=== PATIENT | male | born 1955 | race Hispanic/Latino ===

== ENCOUNTER 2017-02-08 12:17 | Emergency (ER) | payer OTHER ==
[~2017-02-08] VITALS: Ht 175.3 cm; Wt 68.0 kg
--- NOTE | 2017-02-08 12:27 | ED NECK/BACK PAIN COMPLAINT ---
History of Present Illness General Chief Complaint: Low Back Pain/Injury Stated Complaint: LOW BACK PAIN Source: patient, family Exam Limitations: no limitations Vital Signs & Intake/Output Vital Signs & Intake/Output Vital Signs Date Time Temp Pulse Resp B/P Pulse O2 O2 Flow FiO2 Ox Delivery Rate 02/08 1438 97.8 80 20 138/85 96 Room Air 02/08 1223 97.9 86 18 134/78 96 Room Air Allergies Coded Allergies: Penicillins (PASSES OUT 02/08/17) Reconcile Medications Aspirin (Aspirin*) 81 MG TAB.CHEW 1 TAB PO DAILY HEART HEALTH (Reported) Cyclobenzaprine HCl 10 MG TABLET 1 TAB PO TID PRN muscle relaxant Methylprednisolone. (Medrol) 4 MG TAB.DS.PK 1 DP PO AD INFLAMMATION Oxycodone HCl/Acetaminophen (Percocet 5-325 MG Tablet) 5 MG-325 MG TABLET 1 TAB PO Q6H PRN PAIN Triage Note: PT STATES HIS BACK IS HURTING FOR THE PAST 3 DAYS. PT STATES HE TRIED TO GET UP FROM THE TOILET AND TWISTED HIS BACK AND ENDED UP IN BED FOR 3 DAYS. PT STATES HE HAS HAD BACK PROBLEMS IN THE PAST. Triage Nurses Notes Reviewed? yes HPI: Patient is a 61 year old male presents complaining of pain to left back, radiating down his left lower extremity. Occasionally radiating down the right lower extremity. Pain onset 3 days ago when patient was getting out of bed and fell back into bed. Back pain is stabbing, mildly improves with sitting. Pain intermittent radiates to left lower abdomen. Urine has been very dark over the past 3 days. Patient has been taking Ibuprofen and Aspirin with no improvement. Worsens with lying down and movement. Chronic back pain x 30 years since sustaining a work injury. Patient had evaluation at [facility] approximately 6 months ago for evaluation of back pain, reports that he had an MRI that was normal. Past History Travel History Traveled to [place] past 21 day No Medical History Any Pertinent Medical History? see below for history Musculoskeletal: chronic back pain Surgical History Surgical History: non-contributory Psychosocial History What is your primary language Mauritian Tobacco Use: Current Daily Use Daily Tobacco Use Amount/Type: => 5 Cigarettes daily ETOH Use: denies use Illicit Drug Use: denies illicit drug use Family History Hx Contributory? No Review of Systems Review of Systems Constitutional: Denies: chills, fever. Eyes: Reports: no symptoms. Ears, Nose, Throat, Mouth: Reports: no symptoms. Respiratory: Denies: short of breath. Cardiovascular: Denies: chest pain. Gastrointestinal/Abdominal: Denies: diarrhea, nausea, vomiting. Musculoskeletal: Reports: back pain. Skin: Reports: no symptoms. Neurological/Psychological: Reports: no symptoms. Physical Exam Physical Exam General Appearance: alert, awake Head: atraumatic, normal appearance Eyes: Bilateral: normal appearance. Ears, Nose, Throat, Mouth: hearing grossly normal, moist mucous membrane Neck: normal inspection, supple, full range of motion Respiratory: no respiratory distress Cardiovascular: regular rate/rhythm Peripheral Pulses: 2+ dorsalis pedis (R), 2+ dorsalis pedis (L) Gastrointestinal: soft, mild LLQ tenderness Back: midline lumbar tenderness in the area of L3. Diffuse right lumbar paraspinal tenderness Extremities: normal range of motion Straight Leg Raising: Right: Negative. Left: Negative. DTR: Patellar: 2: L4 Right, L4 Left. Neurologic/Psych: awake, alert, oriented x 3 Skin: intact, normal color, warm/dry Progress Differential Diagnosis: AAA, cauda equina syn, herniated disc, myofascial strain , pyelo/UTI, sciatica, T/L spine injury, ureterolithiasis, malignancy Plan of Care: Orders Procedure Date/time Status URINALYSIS 02/08 1251 Complete Current Medications Sig/Semaj Start time Last Medication Dose Stop Time Status Admin Morphine Sulfate 4 MG ONCE ONE 02/08 1415 CAN (Morphine) 02/08 1416 Laboratory Tests 02/08/17 1434: Urinalysis LIGHT H, Urine Color YEL, Urine Clarity CLEAR, Urine pH 6.0, Ur Specific [place] 1.020, Urine Protein NEG, Urine Ketones NEG, Urine Nitrite NEG, Urine Bilirubin NEG, Urine Urobilinogen 0.2, Ur Leukocyte Esterase NEG, Ur Microscopic SEDIMENT EXAMINED, Urine RBC 5-10 H, Urine WBC 1-3 H, Ur Epithelial Cells FEW, Urine Bacteria FEW H, Granular Casts FEW H, Urine Mucus MANY H, Urine Hemoglobin SMALL H, Urine Glucose NEG 1410: Results of x-rays discussed with patient and his family member. Patient reports mild improvement after Toradol, Percocet and Flexeril, but pain continues to be moderate to severe with movement. does not appear to require emergent MRI. 1500: Results of urinalysis discussed with patient. No palpable pulsatile masses of the abdomen. Discussed with patient the presence of a small amount of blood in urine and importance of follow up. (MAHOGANY ESTES,MICHELLE) Diagnostic Imaging: Viewed by Me: Radiology Read. Discussed w/RAD: Radiology Read. Radiology Impression: PATIENT: BONNIE DIAZ PRESENT AGE: 61 PATIENT ACCOUNT NO: [id number] : 55 LOCATION: [facility] ORDERING PHYSICIAN: MICHELLE ESTES SERVICE DATE: 02/08/17 EXAM TYPE: RAD - XRY-LUMBOSACRAL SPINE 4 VIEWS EXAMINATION: XR LUMBOSACRAL SPINE CLINICAL INFORMATION: Severe low back pain. Mid line and right-sided tenderness. COMPARISON: None TECHNIQUE: AP and lateral views of lumbosacral spine were obtained with coned AP and lateral views of the lumbosacral junction. FINDINGS: There is severe degenerative disc disease at L5-S1 with disc space narrowing and prominent marginal osteophytosis. Mild spondylosis is seen at levels in the lower thoracic and upper lumbar spine. Alignment is normal. No acute abnormality is seen. Sacroiliac joints are unremarkable. The paravertebral soft tissues are unremarkable. Vascular calcification is present in the abdominal aorta. IMPRESSION: Severe degenerative disc disease L5-S1. No acute abnormality. DICTATED BY: MAYANK RAMSAY MD DATE/TIME DICTATED:02/08/171353 PAYMENT PROCESSOR:MIGUE DATE/TIME TRANSCRIBED:02/08/171353 CONFIDENTIAL, DO NOT COPY WITHOUT APPROPRIATE AUTHORIZATION. <Electronically signed in Other Vendor System> SIGNED BY: MAYANK RAMSAY MD 02/08/17 1400 Departure Departure Disposition: HOME OR SELF CARE Condition: Stable Clinical Impression Primary Impression: Acute exacerbation of chronic low back pain Secondary Impressions: Hematuria Referrals: KEN MARROQUIN,HERMELINDO MENDOZA MD,[facility] Additional Instructions: Apply heat to the affected area for 20 minutes 4-5 times a day. Follow up with Dr. Mendoza(primary doctor) to establish a doctor and for further evaluation. Call Friday for appointment. You may also contact Dr. Walters(neurosurgeon) to arrange for appointment for further evaluation. Return to the ER if numbness in your rectum, incontinence, fevers, or worsening of symptoms. Departure Forms: Customer Survey General Discharge Information Prescriptions: Current Visit Scripts Methylprednisolone. (Medrol) 1 DP PO AD #1 DP Cyclobenzaprine HCl 1 TAB PO TID PRN muscle relaxant #30 TAB Oxycodone HCl/Acetaminophen (Percocet 5-325 MG Tablet) 1 TAB PO Q6H PRN PAIN #10 TAB
--- NOTE | 2017-02-08 14:00 | RADIOLOGY REPORT ---
EXAMINATION: XR LUMBOSACRAL SPINE CLINICAL INFORMATION: Severe low back pain. Mid line and right-sided tenderness. COMPARISON: None TECHNIQUE: AP and lateral views of lumbosacral spine were obtained with coned AP and lateral views of the lumbosacral junction. FINDINGS: There is severe degenerative disc disease at L5-S1 with disc space narrowing and prominent marginal osteophytosis. Mild spondylosis is seen at levels in the lower thoracic and upper lumbar spine. Alignment is normal. No acute abnormality is seen. Sacroiliac joints are unremarkable. The paravertebral soft tissues are unremarkable. Vascular calcification is present in the abdominal aorta. IMPRESSION: Severe degenerative disc disease L5-S1. No acute abnormality.
[2017-02-08] MEDS ORDERED: PERCOCET 5-3251 EACH PO (14:15)
[2017-02-08] MEDS ORDERED: MEDROL4 M2 PO (14:15)
[2017-02-08] MEDS ORDERED: CYCLOBENZAPRINE10 M1 PO (14:15)
[2017-02-08] MEDS ORDERED: ASPIRIN81 M4 PO (14:36)
[2017-02-08 14:38] VITALS: BP 138/85
== END 2017-02-08 15:07 ==
LOC: ERH 12:17
DX: M54.5 Low back pain (principal); G89.29 Other chronic pain; R31.9 Hematuria, unspecified
CPT/HCPCS: 72110; 81001; 96372; J1885